=== PATIENT | female | born 2000 | race Caucasian/White ===

== ENCOUNTER 2021-11-18 23:53 | Emergency (ER) | payer SELFPAY ==
[~2021-11-18] VITALS: Ht 157.5 cm; Wt 61.7 kg
[2021-11-18 23:55] VITALS: BP 107/68
--- NOTE | 2021-11-18 23:58 | NUR ---
TO LOBBY A/W BED AMBULATORY
[2021-11-19] MEDS ORDERED: ACETAMINOPHEN 325 MG TAB PO ONE (00:05)
--- NOTE | 2021-11-19 00:05 | NUR ---
SHE REFUSES TETANUS VACCINE , SHES UTD, ERMD NNOTED
--- NOTE | 2021-11-19 00:05 | NUR ---
MEDICATED PER ERMDS ORDER, PATIENT TOLERATED WELL.
[2021-11-19] MEDS ORDERED: NEOMYCIN/POLYMYXIN/BACITRACIN 0.9 GM/1 PKT TP ONE (00:10)
[2021-11-19 00:24] VITALS: BP 107/68
--- NOTE | 2021-11-19 00:24 | NUR ---
Patient discharged with v/s stable. Written and verbal after care instructions given and explained. Patient verbalized understanding. Ambulatory with steady gait. All questions addressed prior to discharge. Advised to follow up with PMD.
== END 2021-11-19 00:24 | disposition home or self-care (01) ==
LOC: MED 23:53
DX: S00.81XA Abrasion of other part of head, initial encounter (principal); W01.0XXA Fall on same level from slipping, tripping and stumbling without subsequent striking against object, initial encounter; Y93.89 Activity, other specified; Y92.89 Other specified places as the place of occurrence of the external cause; Y99.8 Other external cause status
CPT/HCPCS: 99283